=== PATIENT | female | born 1985 | race Caucasian/White ===

== ENCOUNTER 2020-07-16 18:41 | Emergency (ER) | payer OTHER ==
[~2020-07-16] VITALS: Ht 175.3 cm; Wt 78.0 kg
[2020-07-16 18:43] VITALS: BP 119/83
[2020-07-16] MEDS: LIDO:MAALOX 1:1 20 ML SINGLE DOSE. PO ONE (19:17)
--- NOTE | 2020-07-16 19:21 | PHYS DOC ---
Adult General Chief Complaint Chief Complaint: CHEST PAIN HPI HPI Patient is a 35-year-old female, with a history of GERD/heartburn who presents with a chief complaint of burning chest pain. States it started approximately 3 days ago while she was sitting at home. States she has had similar pain before, and does get frequent heartburn but does not take anything for it. Denies any work-up for GERD. Here in the emergency department patient denies any chest pain, shortness of breath, abdominal pain, nausea, vomiting, diarrhea, dysuria, hematuria or blood in the stool. States she has not had sexual intercourse in approximately 2 years. Denies any recent travel, illnesses, fevers, known ill contacts, Covid/flu symptoms, history of DVT or PE. Denies any dyspnea on exertion, orthopnea, PND or edema. Denies any family history of cardiovascular disease that she is aware of except for maybe and there 60s or 70s. States she has been eating and drinking normally for her. States she is making urine and stool normally for her with no blood in either. Review of Systems Review of Systems Review of systems otherwise unremarkable except noted in HPI. Current Medications Current Medications Current Medications Medications (Trade) Dose Ordered Sig/Sue Start Time Stop Time Status Last Admin Dose Admin Multi-Ingredient Mouthwash/Gargle (Gi Cocktail) 40 ml 1X ONCE 07/16/20 19:00 07/16/20 19:08 SD Allergies Allergies Allergies Coded Allergies Type Severity Reaction Last Updated Verified No Known Drug Allergies 07/16/20 No Physical Exam Physical Exam Constitutional: Well developed, well nourished, no acute distress, non-toxic appearance. [] HENT: Normocephalic, atraumatic, oropharynx moist, no oral exudates Eyes: conjunctiva normal, no discharge. [] Neck: Normal range of motion, Cardiovascular:Heart rate regular rhythm, no murmur [] Lungs & Thorax: Bilateral breath sounds clear to auscultation [] Abdomen: Bowel sounds normal, soft, no tenderness, no masses, no pulsatile masses. [] Skin: Warm, dry, no erythema, no rash. [] Back: No tenderness, no CVA tenderness. [] Extremities: No tenderness, no cyanosis, no clubbing, ROM intact, no edema. [] Neurologic: Alert and oriented X 3, normal motor function, normal sensory function, no focal deficits noted. [] Psychologic: Affect normal, judgement normal, mood normal. [] Current Patient Data Vital Signs Vital Signs Date Time Temp Pulse Resp B/P (MAP) Pulse Ox O2 Delivery O2 Flow Rate FiO2 07/16/20 18:41 98.1 90 16 119/83 (95) 100 Room Air EKG EKG EKG with a rate of 78, QRS of 86, QTc 451, no STEMI. [] Radiology/Procedures Radiology/Procedures []Impression: No evidence of an acute cardiopulmonary process. Electronically signed by: Lion Bedolla III, MD (07/16/2020 7:52 PM) [facility] Heart Score HEART Score for Chest Pain: HEART Score for Chest Pain Response (Comments) Value History Slighlty/Non-Suspicious 0 ECG Normal 0 Age < 45 0 Risk Factors No Risk Factors 0 Troponin < Normal Limit 0 Total 0 Risk Factors: Risk Factors: DM, Current or recent (<one month) smoker, HTN, HLP, family hist ory of CAD, obesity. Risk Scores: Risk Factors: DM, Current or recent (<one month) smoker, HTN, HLP, family history of CAD, obesity. Course & Med Decision Making Course & Med Decision Making Patient is a 35-year-old female presents with burning chest pain for 3 days intermittently Vital signs not concerning. Physical exam noted above. EKG noted and not concerning. Given GI cocktail as patient's history, and description suggestive of some level of GERD, and low suspicion for ACS or DVT/PE. On reassessment patient was feeling better and had no new signs or symptoms. Given education on GERD, advised to start an [id number] PPI such as omeprazole this evening, and advised to follow-up first thing in the morning with her primary care physician to discuss chronic GERD management and need for EGD. Patient grateful, verbalized understanding and agreed with plan of discharge. [] Dragon Disclaimer Dragon Disclaimer This electronic medical record was generated, in whole or in part, using a voice recognition dictation system. Departure Departure: Impression: Primary Impression: GERD (gastroesophageal reflux disease) Disposition: 01 DC HOME SELF CARE/HOMELESS Condition: IMPROVED Referrals: [facility] (PCP) Patient Instructions: Heartburn Additional Instructions: Please read all the attached information. Please stop at the pharmacy as discussed and begin a [id number] heartburn medicine such as omeprazole and take as indicated on the bottle. Please call your primary care physician first thing in the morning to set up an outpatient follow-up visit to discuss your ED visit and discuss also the need for an EGD, which is a scope to evaluate your esophagus/stomach and intestine for inflammation and/or ulcer. Please adjust diet over the next several days to relieve symptoms, including cessation of coffee, alcohol, spicy and fatty foods. Please try not to eat approximately 2 hours before going to bed as this can also help. Please come back to the ED with new or concerning symptoms. JOHANNA KURTZ MD Jul 16, 2020 19:21
--- NOTE | 2020-07-16 19:55 | RAD ---
XR CHEST 1V Clinical History: Reason: chest pain / Spl. Instructions: / History: Technique: AP view of the chest was obtained at 07/16/2020 7:40 PM. Comparison: None. Findings: The cardiomediastinal silhouette is normal. The pulmonary vasculature is normal. The lungs and pleura l margins are clear. Impression: No evidence of an acute cardiopulmonary process. Electronically signed by: Lion Bedolla III, MD (07/16/2020 7:52 PM) [facility]
--- NOTE | 2020-07-17 03:47 | EKG ---
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
== END 2020-07-16 20:48 | disposition home or self-care (01) ==
LOC: ER 18:41
DX: K21.9 Gastro-esophageal reflux disease without esophagitis (principal)
CPT/HCPCS: 71045; 93005; 99283; 99284